=== PATIENT | female | born 2000 | race Caucasian/White ===

== ENCOUNTER 2020-03-12 22:16 | Emergency (ER) | payer OTHER ==
[~2020-03-12] VITALS: Ht 160 cm; Wt 87.1 kg
[2020-03-12 22:22] VITALS: BP 145/90
--- NOTE | 2020-03-12 22:27 | NUR ---
PT TAKEN TO ER BED 12
--- NOTE | 2020-03-12 22:30 | NUR ---
PT 19 Y/O FEMALE BIB SELF FOR C/O L ELBOW PAIN RADIATING TO L FOREARM S/P FALL. PT NOTED WITH SWELLING AROUND ELBOW. PT STATES PAIN INCREASES WITH MOVEMENT. CMS INTACT. CAP REFILL <3. PT STATES SHE TRIPED AND FELL ON HER ELBOW AT HOME. PT ADMITS TO TAKING 600MG OF IBUPROFEN AT HOME WITH INEFFECTIVE RESULTS. MEDHX: NONE ALLERGIES: NKA
--- NOTE | 2020-03-12 22:40 | NUR ---
ERMD AT BEDSIDE.
[2020-03-12] MEDS ORDERED: KETOROLAC 60 MG/2 ML VIAL IM ONE (22:45)
--- NOTE | 2020-03-12 23:18 | NUR ---
PT CONTINUES TO HAVE PAIN IN L ELBOW/ FA. PT STATES PAIN HAS REDUCED FROM 04/04 TP 03/05. ERMD MADE AWARE. NEW ORDERS GIVEN.
--- NOTE | 2020-03-12 23:20 | NUR ---
ERMD AT BEDSIDE.
[2020-03-12] MEDS ORDERED: MORPHINE SULFATE 4 MG/ML SYR IM ONE (23:25)
--- NOTE | 2020-03-12 23:40 | NUR ---
PTS LEFT ARM WAS PLACED IN A POSTERIOR LONG ARM SPLINT. PTS PMSC WNL. PT WAS ALSO GIVE A SHOULDER IMOBOLIZER.
--- NOTE | 2020-03-12 23:49 | NUR ---
DISCHARGE INSTRUCTIONS EXPLAINED TO PT BY ERMD NOTIFIED. GIVEN RX OF NAPROSYN. PT D/C IN STABLE CONDITON.
== END 2020-03-12 23:49 | disposition home or self-care (01) ==
LOC: MED 22:16
DX: S52.92XA Unspecified fracture of left forearm, initial encounter for closed fracture (principal); W18.39XA Other fall on same level, initial encounter; Y93.89 Activity, other specified; Y92.89 Other specified places as the place of occurrence of the external cause; Y99.8 Other external cause status; I51.9 Heart disease, unspecified
CPT/HCPCS: 73080; 96372; 99284; J1885; J2270; Q0092